=== PATIENT | female | born 1980 | race Caucasian/White ===

== ENCOUNTER → 2020-04-22 06:40 | Outpatient (CLI) | payer OTHER | END | disposition home or self-care (01) | LOC: LAB 06:40 | PROVIDERS: ATTEND Colon & Rectal Surgery | DX: K59.09 Other constipation (principal); K57.32 Diverticulitis of large intestine without perforation or abscess without bleeding ==

== ENCOUNTER → 2020-04-22 | Outpatient (CLI) | payer OTHER ==
[~2020-04-22] MED LIST: AMOX1TAB5 PO; CIPRO500 MG PO; FLAGYL500MG PO; LEVSIN/SL0.125 MG PO; LEVSIN/SL0.125 MG SL; PROTONIX40 MG PO; SYNTHROID50 MCG; ZANTAC150 MG PO
== END | disposition home or self-care (01) ==
LOC: TOM 07:10
PROVIDERS: ATTEND Colon & Rectal Surgery
DX: K57.92 Diverticulitis of intestine, part unspecified, without perforation or abscess without bleeding (principal); K59.09 Other constipation; K57.32 Diverticulitis of large intestine without perforation or abscess without bleeding

== ENCOUNTER 2020-05-16 15:15 | Outpatient (CLI) | payer OTHER | END 2020-05-16 15:24 | disposition home or self-care (01) | LOC: LAB 15:15 | PROVIDERS: ATTEND Surgery | DX: K57.20 Diverticulitis of large intestine with perforation and abscess without bleeding (principal) ==

== ENCOUNTER 2020-06-26 07:11 | Day surgery (SDC) | payer OTHER | END 2020-06-26 12:50 | disposition home or self-care (01) | LOC: AMB-ENDOS 07:11 | PROVIDERS: ATTEND Surgery | DX: K57.32 Diverticulitis of large intestine without perforation or abscess without bleeding (principal); Z20.828 Contact with and (suspected) exposure to other viral communicable diseases ==

== ENCOUNTER 2020-08-06 08:30 | Inpatient (IN) | payer OTHER ==
[~2020-08-06] VITALS: Ht 157.5 cm; Wt 59.0 kg
[2020-08-11] MEDS ORDERED: LEVO-T75 MCG (09:05)
[2020-08-14] MEDS ORDERED: ULTRAM50 MG PO (09:26)
[2020-08-14] MEDS ORDERED: LEVSIN/SL0.125 MG SL (09:27)
[2020-08-14] MEDS ORDERED: INTESTINEX680 M1 PO (09:28)
== END 2020-08-14 11:37 | disposition home or self-care (01) | DRG 331 ==
LOC: SURH 08-11 07:00 → SURG 08-11 07:35 → O/R 08-11 07:35 → SURH 08-11 08:30 → SURG 08-11 14:27
PROVIDERS: ADMIT Surgery; ATTEND Surgery
PROC: 0DTP4ZZ Resection of Rectum, Percutaneous Endoscopic Approach (ICD-10-PCS; 2020-08-11)
PROC: 0DBN4ZZ Excision of Sigmoid Colon, Percutaneous Endoscopic Approach (ICD-10-PCS; principal; 2020-08-11 07:00)
DX: K57.32 Diverticulitis of large intestine without perforation or abscess without bleeding (principal); D12.6 Benign neoplasm of colon, unspecified; N73.6 Female pelvic peritoneal adhesions (postinfective); N99.4 Postprocedural pelvic peritoneal adhesions; K57.90 Diverticulosis of intestine, part unspecified, without perforation or abscess without bleeding; E03.9 Hypothyroidism, unspecified; E80.6 Other disorders of bilirubin metabolism

== ENCOUNTER 2021-06-27 14:20 | Emergency (ER) | payer OTHER ==
[~2021-06-27] VITALS: Ht 157.5 cm; Wt 66.7 kg
[~2021-06-27 14:20] MED LIST changes: +INTESTINEX680 M1 PO; +LEVO-T75 MCG; +ULTRAM50 MG PO
== END 2021-06-27 19:38 | disposition home or self-care (01) ==
LOC: ER 14:20
DX: K57.90 Diverticulosis of intestine, part unspecified, without perforation or abscess without bleeding (principal)

== ENCOUNTER 2021-10-08 08:18 | Emergency (ER) | payer OTHER ==
[~2021-10-08] VITALS: Ht 157.5 cm; Wt 68.0 kg
[2021-10-08] MEDS ORDERED: SYNTHROID50 MCG PO (08:32)
== END 2021-10-08 20:16 | disposition home or self-care (01) ==
LOC: ER 08:18
DX: R10.84 Generalized abdominal pain (principal); Z88.6 Allergy status to analgesic agent